=== PATIENT | female | born 2000 | race Caucasian/White ===

== ENCOUNTER 2025-03-05 01:59 | Emergency (ER) | payer OTHER, SELFPAY ==
[2025-03-05 02:43] LABS: Glucose, Urine (Dipstick) Normal (Negative); Leukocyte 25 (Negative); Protein, Urine (Dipstick) 15 mg/dl (Neg-Trace); Specific Gravity, Urine 1.025 (1.005-1.030)
[2025-03-05 02:45] LABS: Pregnancy Test - Urine (BHCG) Negative (Negative); Pregu Control Background? CLEAR/WHITE (CLR/WHITE); Pregu Control Bar Appear? YES (CONTROL BAR)
[2025-03-05 02:54] LABS: Bacteria/HPF Rare-Few HPF (None Seen); CAUTI Indications for Culture Dysuria,urgency,freq; RBC/HPF None Seen HPF (0-3); Urine Culture Reflex No No
== END 2025-03-05 03:17 | disposition home or self-care (01) ==
LOC: CSHERS 01:59
DX: B34.9 Viral infection, unspecified (principal); K08.89 Other specified disorders of teeth and supporting structures
CPT/HCPCS: 81001; 81025; 87428; 99283